=== PATIENT | female | born 1950 | race Caucasian/White ===

== ENCOUNTER 2016-11-03 18:49 | Emergency (ER) | payer OTHER ==
[2016-11-03 18:55] VITALS: O2SAT 98
[2016-11-03] MEDS ORDERED: MECLIZINE HCL 25 MG TAB PO ONE (19:24)
--- NOTE | 2016-11-03 19:24 | EDPHY ---
H & P Time Seen by Provider: 11/03/16 19:21 HPI/ROS: Chief complaint. Syncope HPI. Patient is 65-year-old female long history of vertigo. She has had vertigo symptoms for 1 week. She is in PT. Her symptoms were worse this past week so she saw PT today and they performed Radha maneuver with minimal relief. She has also had a nuclear stress test recently which shows mitral valve insufficiency but otherwise no ischemia. This afternoon she was resting in her recliner chair and developed some low abdominal cramping that she felt she needed to have diarrhea. She got up and sat on the toilet. While sitting on the toilet she had increased cramping. She began to be sweaty. She felt like she might pass out and then she did pass out for 15 seconds. She is not injured. She has had many episodes of near-syncope but this is the 1st time she has passed out. She has had multiple episodes of diarrhea. She still is weak and nauseated. Her dizziness is worse with head movement and she feels somewhat unsteady on her feet. No chest discomfort, shortness of breath. No focal weakness or paresthesia ROS Constitutional. Generalized weakness Eyes. no problems with vision ENT. no sore throat, no nasal drainage Cardiovascular. no chest pain Respiratory. no shortness of breath, no cough Abdominal. no abdominal pain, no nausea/vomiting, no diarrhea . no problems urinating MS. no calf pain/swelling, no neck/back pain, no joint pain Skin. no rash Lymph. no swollen glands Neuro. 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 ENT, Mouth: Mucous membranes are moist. Respiratory: There are no retractions, lungs are clear to auscultation. Cardiovascular: Regular rate and rhythm. Gastrointestinal: Abdomen is soft and nontender, no masses, bowel sounds normal. Neurological: Awake and alert, sensory and motor exams grossly normal. Skin: Warm and dry, no rashes. Musculoskeletal: Neck is supple nontender. Extremities symmetrical, full range of motion. Psychiatric: Patient is oriented X 3, there is no agitation. Constitutional: Initial Vital Signs Temperature (C) 36.4 C 11/03/16 18:51 Heart Rate 92 11/03/16 18:51 Respiratory Rate 16 11/03/16 18:51 Blood Pressure 150/73 H 11/03/16 18:51 O2 Sat (%) 98 11/03/16 18:51 O2 Delivery Mode Room Air Allergies/Adverse Reactions: acetaminophen [From Percocet] Allergy (Unknown, Verified 07/30/16 21:40) hydrocodone bitartrate [From Vicodin] Allergy (Unknown, Verified 07/30/16 21:40) oxycodone HCl [From Percocet] Allergy (Unknown, Verified 07/30/16 21:40) allantoin [From Vaseline Lip Therapy Medicated] Allergy (Verified 07/30/16 21:40 ) amoxicillin trihydrate [From Augmentin] Allergy (Verified 07/30/16 21:40) camphor [From Vaseline Lip Therapy Medicated] Allergy (Verified 07/30/16 21:40) cephalexin [Cephalexin] Allergy (Verified 07/30/16 21:40) codeine [Codeine] Allergy (Verified 07/30/16 21:40) erythromycin lactobionate [From Erythrocin] Allergy (Verified 07/30/16 21:40) loratadine [From Claritin] Allergy (Verified 07/30/16 21:40) menthol [From Vaseline Lip Therapy Medicated] Allergy (Verified 07/30/16 21:40) morphine Allergy (Verified 07/30/16 21:40) octinoxate [From Elta 30 Block] Allergy (Verified 07/30/16 21:40) octyl salicylate [From Elta 30 Block] Allergy (Verified 07/30/16 21:40) petrolatum,white [From Vaseline Lip Therapy Medicated] Allergy (Verified 21:40) phenol liquid [From Vaseline Lip Therapy Medicated] Allergy (Verified 07/30/16 21:40) potassium clavula *RETIRED-04/12/12 [From Augmentin] Allergy (Verified 07/30/16 21:40) promethazine HCl [From Phenergan] Allergy (Verified 07/30/16 21:40) timolol maleate [From Istalol] Allergy (Verified 07/30/16 21:40) titanium dioxide [From Elta 30 Block] Allergy (Verified 07/30/16 21:40) zinc oxide [From Elta 30 Block] Allergy (Verified 07/30/16 21:40) Home Medications: Medication Instructions Recorded Atropine 1% 05/14/11 Climara Patch 05/14/11 Prednisolone Eye Drops 08/17/12 Fluticasone Nasal [Flonase Nasal 2 sprays NASAL DAILY #1 mdi 07/30/16 [facility] (RX)] Meclizine HCl [Meclizine HCl 25 mg 25 mg PO TID PRN #20 tab 07/30/16 (RX,OTC)] Ondansetron Odt [Zofran Odt] 4 - 8 mg PO Q4PRN PRN #4 tab 07/30/16 Meclizine HCl [Antivert] 25 mg PO Q6-8PRN PRN #14 tablet 11/03/16 Ondansetron Odt [Zofran Odt] 4 mg PO Q4PRN PRN #4 tab 11/03/16 Medical Decision Making - Diagnostics EKG Interpretation: EKG interpreted by me shows normal sinus rhythm with normal interval and axis. QRS is normal there is no significant ST elevation or depression. The rate is 80. It does appear that the T-waves are somewhat peaked Imaging: Chest x-ray interpreted by me is normal Procedures: IV normal saline, monitor Patient is offered meclizine but declines IV normal saline with 1 L and she is offered Zofran for nausea ED Course/Re-evaluation: Re-evaluation 8:50 p.m.--patient feels improved. She and I discussed imaging lab an EKG findings. We discussed treatment plan. She is offered admission however she would rather go home and be treated as outpatient. She did have a recent cardiac workup that was normal. Differential Diagnosis: I suspect the syncope was secondary to vasovagal episode. She was having strong abdominal cramping and in addition to her vertigo. She had a brief loss of consciousness without injury. No evidence for cardiac disease including arrhythmia - Data Points Laboratory Results: Laboratory Results 11/03/16 19:50 11/03/16 19:50 11/03/16 11/03/16 19:50 19:50 WBC 9.58 10^3/uL H 10^3/uL (3.80-9.50) RBC 4.92 10^6/uL 10^6/uL (4.18-5.33) Hgb 15.6 g/dL g/dL (12.6-16.3) Hct 45.5 % % (38.0-47.0) MCV 92.5 fL fL (81.5-99.8) MCH 31.7 pg pg (27.9-34.1) MCHC 34.3 g/dL g/dL (32.4-36.7) RDW 13.1 % % (11.5-15.2) Plt Count 354 10^3/uL 10^3/uL (150-400) MPV 9.7 fL fL (8.7-11.7) Neut % (Auto) 74.1 % % (39.3-74.2) Lymph % (Auto) 17.1 % % (15.0-45.0) [place] % (Auto) 7.8 % % (4.5-13.0) Eos % (Auto) 0.2 % L % (0.6-7.6) Baso % (Auto) 0.5 % % (0.3-1.7) Nucleat RBC Rel Count 0.0 % % (0.0-0.2) Absolute Neuts (auto) 7.09 10^3/uL H 10^3/uL (1.70-6.50) Absolute Lymphs (auto) 1.64 10^3/uL 10^3/uL (1.00-3.00) Absolute Monos (auto) 0.75 10^3/uL 10^3/uL (0.30-0.80) Absolute Eos (auto) 0.02 10^3/uL L 10^3/uL (0.03-0.40) Absolute Basos (auto) 0.05 10^3/uL 10^3/uL (0.02-0.10) Absolute Nucleated RBC 0.00 10^3/uL 10^3/uL (0-0.01) Immature Gran % 0.3 % % (0.0-1.1) Immature Gran # 0.03 10^3/uL 10^3/uL (0.00-0.10) Sodium 138 mEq/L mEq/L (134-144) Potassium 4.2 mEq/L mEq/L (3.5-5.2) Chloride 105 mEq/L mEq/L (97-110) Carbon Dioxide 24 mEq/l mEq/l (22-31) Anion Gap 9 mEq/L mEq/L (8-16) BUN 12 mg/dL mg/dL (7-23) Creatinine 0.7 mg/dL mg/dL (0.6-1.0) Estimated GFR > 60 Glucose 102 mg/dL H mg/dL (70-100) Calcium 10.0 mg/dL mg/dL (8.5-10.4) Troponin I < 0.012 ng/mL ng/mL (0-0.034) Medications Given: Discontinued Medications Sodium Chloride (Ns) 1,000 mls @ 0 mls/hr IV ONCE ONE PRN Reason: Wide Open Stop: 11/03/16 19:44 Last Admin: 11/03/16 20:03 Dose: 1,000 mls Meclizine HCl (Meclizine Hcl) 25 mg PO EDNOW ONE Stop: 11/03/16 19:25 Last Admin: 11/03/16 19:57 Dose: 25 mg Ondansetron HCl (Zofran) 4 mg IVP EDNOW ONE Stop: 11/03/16 19:44 Last Admin: 11/03/16 20:03 Dose: 4 mg Departure - Departure Disposition: Home, Routine, Self-Care Clinical Impression: Vertigo Syncope Qualifiers: Syncope type: vasovagal syncope Qualified Code(s): R55 - Syncope and collapse Condition: Good Instructions: Vertigo (ED) Additional Instructions: Drink plenty of fluids and stay hydrated. Meclizine every 8 hours as needed for dizziness. Zofran as needed for nausea. Return for chest discomfort, trouble breathing or another passing out episode. Recheck in 2 days without fail Referrals: Andria Blankenship MD [Primary Care Provider] - 1-2 days without fail Prescriptions: Meclizine HCl [Antivert] 25 mg PO Q6-8PRN PRN #14 tablet PRN Reason: Dizziness Ondansetron Odt [Zofran Odt] 4 mg PO Q4PRN PRN #4 tab PRN Reason: Nausea/Vomiting, Use 1st
[2016-11-03] MEDS ORDERED: ONDANSETRON 4 MG/2 ML VIAL IVP ONE (19:43)
[2016-11-03] MEDS ORDERED: NS 1,000 ML IV ONE (19:43)
[2016-11-03 20:01] LABS: % IMMATURE GRANULYOCYTES 0.3 % (0.0-1.1); ABSOLUTE IMMATURE GRANULOCYTES 0.03 10^3/uL (0.00-0.10); ADD DIFF? NO; ADD MORPH? NO; ADD SCAN? NO; ATYPICAL LYMPHOCYTE FLAG 10 (0-99); FRAGMENT RBC FLAG 0 (0-99); HEMATOCRIT 45.5 % (38.0-47.0); HEMOGLOBIN 15.6 g/dL (12.6-16.3); LEFT SHIFT FLG 0 (0-99); LIPEMIA HEMOLYSIS FLAG 90 (0-99); MEAN CELL HEMOGLOBIN 31.7 pg (27.9-34.1); MEAN CELL HEMOGLOBIN CONCENTR. 34.3 g/dL (32.4-36.7); MEAN CELL VOLUME 92.5 fL (81.5-99.8); MEAN PLATELET VOLUME 9.7 fL (8.7-11.7); PLATELET CLUMPS FLAG 0 (0-99); PLATELET COUNT 354 10^3/uL (150-400); RED BLOOD CELL COUNT 4.92 10^6/uL (4.18-5.33); RED CELL DISTRIBUTION WIDTH 13.1 % (11.5-15.2)
[2016-11-03 20:17] LABS: ANION GAP 9 mEq/L (8-16); CARBON DIOXIDE 24 mEq/l (22-31); CHLORIDE 105 mEq/L (97-110); CREATININE 0.7 mg/dL (0.6-1.0); GLOMERULAR FILTRATION RATE > 60; GLUCOSE 102 mg/dL (70-100); POTASSIUM 4.2 mEq/L (3.5-5.2); SODIUM 138 mEq/L (134-144)
[2016-11-03 20:28] LABS: TROPONIN I < 0.012 ng/mL (0-0.034)
[2016-11-03 21:47] VITALS: BP 117/61; PULSE 75; RESP 20; TEMP 97.9
--- NOTE | 2016-11-04 09:16 | CPEKG ---
Heart Rate: 80 RR Interval: 750 P-R Interval: 172 QRSD Interval: 90 QT Interval: 380 QTC Interval: 439 P [place]: 56 QRS [place]: 45 T Wave [place]: 57 EKG Severity - NORMAL ECG - EKG Impression: SINUS RHYTHM Electronically Signed By: Bora Rucker 05-Nov-2016 12:20:07
== END 2016-11-03 21:54 | disposition home or self-care (01) ==
DX: R55 Syncope and collapse (principal); R42 Dizziness and giddiness; Z87.891 Personal history of nicotine dependence
CPT/HCPCS: 71010; 93005; 96361; 96374; 99285; J2405